=== PATIENT | female | born 1955 | race Caucasian/White ===

== ENCOUNTER → 2022-12-18 | Day surgery (SDC) | payer MEDICARE ==
[~2022-12-18] MED LIST: Acetaminophen/HYDROcodone 325-5 MG Tab PO PRN; Bupivacaine 0.25% 10 ML SDV ONE; Dexamethasone 4 MG/ML 5 ML MDV ONE; EPINEPHrine 1 MG/ML 30 ML MDV IRR SCH; HYDROmorphone 0.5 MG/0.5 ML Syringe IVPUSH PRN; Ketorolac 15 MG/ML SDV ONE; Lactated Ringers 1,000 ML IV SCH; Lidocaine 1% 2 ML ONE; Lidocaine 2% 100 MG/5 ML Syringe ONE; Lidocaine 2% Jelly 5 ML Tube ONE; Midazolam 1 MG/ML 2 ML SDV ONE; Ondansetron 4 MG/2 ML SDV IVPUSH PRN; Ondansetron 4 MG/2 ML SDV ONE; Propofol 200 MG/20 ML SDV ONE; Sodium Chloride 0.9% 10 ML Syringe FLUSH PRN; Sodium Chloride 0.9% 10 ML Syringe FLUSH SCH; ceFAZolin 2 GM Vial ONE; ePHEDrine 50 MG/ML SDV ONE; fentaNYL 100 MCG/2 ML SDV ONE
[2022-12-18] MEDS: fentaNYL 100 MCG/2 ML SDV IVPUSH PRN ×2 (09:48→10:00)
== END | disposition home or self-care (01) ==
LOC: JD.SDS 06:17
PROVIDERS: ATTEND Orthopaedic Surgery
DX: M23.303 Other meniscus derangements, unspecified medial meniscus, right knee (principal); M22.41 Chondromalacia patellae, right knee; G89.29 Other chronic pain; I10 Essential (primary) hypertension; R73.03 Prediabetes; E78.00 Pure hypercholesterolemia, unspecified; E03.9 Hypothyroidism, unspecified; M06.9 Rheumatoid arthritis, unspecified; H02.831 Dermatochalasis of right upper eyelid; H02.834 Dermatochalasis of left upper eyelid; M72.2 Plantar fascial fibromatosis; R06.02 Shortness of breath; Z87.891 Personal history of nicotine dependence; Z79.890 Hormone replacement therapy; Z79.899 Other long term (current) drug therapy; Z88.8 Allergy status to other drugs, medicaments and biological substances; Z91.048 Other nonmedicinal substance allergy status
CPT/HCPCS: 29881; A9270; J0171; J0690; J1100; J1885; J2250; J2405; J2704; J3010; J3490; J7120; 01400

== ENCOUNTER 2024-07-20 09:26 | Day surgery (SDC) | payer BC, MEDICARE ==
[2024-07-20] MEDS: Lactated Ringers 1,000 ML IV SCH (08:45)
[~2024-07-20 09:26] MED LIST changes: -Acetaminophen/HYDROcodone 325-5 MG Tab PO PRN; -Bupivacaine 0.25% 10 ML SDV ONE; -Dexamethasone 4 MG/ML 5 ML MDV ONE; -EPINEPHrine 1 MG/ML 30 ML MDV IRR SCH; -Ketorolac 15 MG/ML SDV ONE; -Lactated Ringers 1,000 ML IV SCH; -Lidocaine 1% 2 ML ONE; -Lidocaine 2% 100 MG/5 ML Syringe ONE; -Lidocaine 2% Jelly 5 ML Tube ONE; -Ondansetron 4 MG/2 ML SDV IVPUSH PRN; -Ondansetron 4 MG/2 ML SDV ONE; -ceFAZolin 2 GM Vial ONE; -ePHEDrine 50 MG/ML SDV ONE; +fentaNYL 100 MCG/2 ML SDV IVPUSH PRN
[2024-07-20] MEDS: oxyCODONE ER 10 MG TAB.ER PO ONE (10:12)
[2024-07-20] MEDS: Acetaminophen 325 MG Tab PO ONE (10:12)
[2024-07-20] MEDS: Pregabalin 25 MG Cap PO ONE (10:12)
[2024-07-20] MEDS ORDERED: ePHEDrine 50 MG/ML SDV ONE (11:34)
[2024-07-20] MEDS ORDERED: ceFAZolin 2 GM Vial ONE (11:34)
[2024-07-20] MEDS ORDERED: Ketorolac 30 MG/ML SDV ONE (12:28)
[2024-07-20] MEDS ORDERED: Ondansetron 4 MG/2 ML SDV ONE (12:28)
[2024-07-20] MEDS: Morphine 8 MG, EPINEPHrine 0.3 MG, Cefuroxime 750 MG, Sodium Chloride 0.9% 7.9 ML PRN (12:33)
[2024-07-20] MEDS: VANCOmycin 1 GM SDV ONE (12:39)
[2024-07-20] MEDS: Tranexamic Acid 1,000 MG/10 ML Vial ONE (12:39)
[2024-07-20] MEDS ORDERED: Ropivacaine 0.5% 5 MG/ML 30 ML SDV ONE (13:05)
[2024-07-20] MEDS: Ondansetron 4 MG/2 ML SDV IVPUSH PRN (15:25)
== END 2024-07-20 17:38 | disposition home or self-care (01) ==
LOC: JD.SDS 09:26
PROVIDERS: ATTEND Orthopaedic Surgery
DX: M17.11 Unilateral primary osteoarthritis, right knee (principal); E03.9 Hypothyroidism, unspecified; I10 Essential (primary) hypertension; Z88.8 Allergy status to other drugs, medicaments and biological substances; Z79.899 Other long term (current) drug therapy; Z79.890 Hormone replacement therapy; Z91.09 Other allergy status, other than to drugs and biological substances; Z87.891 Personal history of nicotine dependence
CPT/HCPCS: 0055T; 27447; 73560; 97116; 97161; A9270; C1713; C1776; J0171; J0690; J0697; J1885; J2250; J2272; J2405; J2704; J2795; J3010; J7120; J3490

== ENCOUNTER 2024-11-02 06:00 | Day surgery (SDC) | payer BC ==
[~2024-11-02 06:00] MED LIST changes: -HYDROmorphone 0.5 MG/0.5 ML Syringe IVPUSH PRN; -Midazolam 1 MG/ML 2 ML SDV ONE; -Propofol 200 MG/20 ML SDV ONE; -fentaNYL 100 MCG/2 ML SDV IVPUSH PRN; -fentaNYL 100 MCG/2 ML SDV ONE
[2024-11-02] MEDS: Lactated Ringers 1,000 ML IV SCH (06:00)
[2024-11-02] MEDS ORDERED: fentaNYL 100 MCG/2 ML SDV ONE (06:13)
[2024-11-02] MEDS ORDERED: Propofol 200 MG/20 ML SDV ONE (06:13)
[2024-11-02] MEDS ORDERED: dexmedeTOMIDine HCl 200 MCG/2 ML SDV ONE (06:14)
[2024-11-02] MEDS ORDERED: Ropivacaine 0.5% 5 MG/ML 30 ML SDV ONE (06:14)
[2024-11-02] MEDS ORDERED: Midazolam 1 MG/ML 2 ML SDV ONE (06:14)
[2024-11-02] MEDS ORDERED: Lidocaine 1% 4 ML ONE (06:14)
[2024-11-02] MEDS ORDERED: Ondansetron 4 MG/2 ML SDV ONE (06:47)
[2024-11-02] MEDS ORDERED: Ketorolac 30 MG/ML SDV ONE (07:36)
[2024-11-02] MEDS: fentaNYL 100 MCG/2 ML SDV IVPUSH ONE (07:50)
[2024-11-02] MEDS: Acetaminophen/HYDROcodone 325-5 MG Tab PO ONE (08:10)
== END 2024-11-02 08:33 | disposition home or self-care (01) ==
LOC: JD.SDS 06:00
PROVIDERS: ATTEND Orthopaedic Surgery
DX: M24.661 Ankylosis, right knee (principal); J44.89 Other specified chronic obstructive pulmonary disease; I10 Essential (primary) hypertension; E78.5 Hyperlipidemia, unspecified; K21.9 Gastro-esophageal reflux disease without esophagitis; Z91.011 Allergy to milk products; Z88.8 Allergy status to other drugs, medicaments and biological substances; Z91.09 Other allergy status, other than to drugs and biological substances; Z87.891 Personal history of nicotine dependence; Z79.899 Other long term (current) drug therapy
CPT/HCPCS: 27599; 64447; A9270; J1885; J2003; J2250; J2405; J2704; J2795; J3010; J7120; 01380